=== PATIENT | male | born 1995 | race Two or more races ===

== ENCOUNTER 2022-07-13 19:08 | Inpatient (IN) | payer MEDICARE, OTHER ==
[~2022-07-13] VITALS: Ht 175.3 cm; Wt 92.1 kg
--- NOTE | 2022-07-13 19:51 | NUR ---
JIMENA FROM [facility] C/O DARK TARRY EMESIS THIS AFTERNOON. AUTISTIC PT TOLERATING R/A WELL WITH NO RESP DISTRESS. SAFETY MEASURES INPLACE.
[2022-07-13] MEDS ORDERED: IV NS 0.9% 1,000 ML BAG IV ONE (20:00)
--- NOTE | 2022-07-13 20:22 | NUR ---
RAC #18G S/L BLOOD COLLECTED AND SENT TO LAB
[2022-07-13 20:37] LABS: BASOPHILS # (AUTO) 0.1 K/uL (0.0-0.2); EOSINOPHILS % (AUTO) 1.7 % (0.0-6.0); HEMATOCRIT 46 % (39-51); HEMOGLOBIN 15.3 g/dL (13.5-17.5); LYMPHOCYTES # (AUTO) 2.5 K/uL (0.8-4.8); LYMPHOCYTES % (AUTO) 25.3 % (20.0-44.0); MEAN CORPUSCULAR HGB CONC 33 g/dl (31.0-36.0); MEAN CORPUSCULAR VOLUME 86 fL (80-96); MONOCYTES % (AUTO) 10.1 % (2.0-12.0); NEUTROPHILS # (AUTO) 6.2 K/uL (1.8-8.9); NEUTROPHILS % (AUTO) 61.9 % (43.0-81.0); PLATELET COUNT (AUTO) 266 K/uL (150-450); RED BLOOD CELL COUNT(AUTO) 5.32 MIL/uL (4.5-6.0)
[2022-07-13 21:25] LABS: ALBUMIN 4.1 g/dL (3.4-5.0); BILIRUBIN,DIRECT 0.1 mg/dL (0.0-0.2); BILIRUBIN,TOTAL 0.6 mg/dL (0.2-1.0); CALCIUM, SERUM 9.4 mg/dL (8.5-10.1); POTASSIUM 3.6 mmol/L (3.5-5.1); TOTAL PROTEIN, SERUM 7.5 g/dL (6.4-8.2)
--- NOTE | 2022-07-13 23:05 | NUR ---
PT REFUSINF TO DO CT.
--- NOTE | 2022-07-14 00:50 | NUR ---
COVID SWAB COLLECTED AND SENT TO LAB
[2022-07-14] MEDS ORDERED: PANTOPRAZOLE 40 MG VIAL IV ONE (01:00)
--- NOTE | 2022-07-14 01:16 | NUR ---
ATTEMPTED TO CALL YOUNG MOTHER FOR UPDATE; YOUNG DID NOT COAT IRONER HAND PHONE CALL. WILL TRY AGAIN LATER
[2022-07-14] MEDS ORDERED: PANTOPRAZOLE 40 MG VIAL ONE (03:26)
--- NOTE | 2022-07-14 03:42 | NUR ---
20GA TO LH ESTABLISHED
--- NOTE | 2022-07-14 03:53 | NUR ---
PT TRANSFERRED TO 3W VIA ACLS PROTOCOL. VSS. ALL BELONGINGS WITH PT.
[2022-07-14] MEDS ORDERED: MAGNESIUM HYDROXIDE 30 ML UDC PO PRN (04:00)
[2022-07-14] MEDS ORDERED: ZOLPIDEM TARTRATE 5 MG TABLET PO PRN (04:00)
[2022-07-14] MEDS ORDERED: ACETAMINOPHEN 325 MG TABLET PO PRN (04:00)
[2022-07-14] MEDS ORDERED: LORAZEPAM INJ 2 MG/ML VIAL IV PRN (04:00)
[2022-07-14] MEDS ORDERED: ONDANSETRON HCL/PF 4 MG/2 ML VIAL IVP PRN (04:00)
[2022-07-14] MEDS ORDERED: Z GUARD REMEDY 4 OZ OINT TP PRN (04:00)
[2022-07-14] MEDS ORDERED: MAG HYDROX/AL HYDROX/SIMETH 30 ML UDC PO PRN (04:00)
--- NOTE | 2022-07-14 04:00 | NUR ---
CARRIAGE FEEDER NOTES RECEIVED PATIENT AWAKE , ALERT AND ORIENTED FROM ER WITH SAMREEN. PATIENT IS NON VERBAL AND NOT HAVING EYE CONTACT.PATIENT ABLE TO AMBULATE FORM JENNRNEY TO THE BED. TRYING TO HOLD HIS HAND PATIENT REFUSING. NO PAIN NOTED. NO SOB NOTED. NO DISTRESS NOTED. ON ROOM AIR AND TOLERATING WELL. NO DISCOMFORT NOTED. NO EPISODE OF EMESIS NOTED. VITAL SIGNS IN NORMAL RANGES: NO=505/85, P=108, T=98.1, 02=97% RA. OVERALL SKIN INTACT. QUICK SKIN CHECKS DONE. PATIENT HAS HISTORY OF AUTISM AND REFUSING TO BE TOUCHED. REMOVED ID BAND. IV SITE WAS REMOVED IN ER. PATIENT REFUSED FOR IV REINSERTION. ON TELE MONITOR READING SR 86. ALL THE BELONGINGS ACCOUNTED AND SIGNED FOR. ALL SAFETY MEASURES IN PLACE. BED LOCKED IN THE LOWEST POSITION. CALL LIGHT AND TABLE IN EASY REACH SIDE RAILS UP TIMES 2. BED ALARM ON. WILL CONTINUE TO MONITOR CLOSELY.
--- NOTE | 2022-07-14 06:51 | NUR ---
CENA NOTES PATIENT SLEEPS IN BED.PATIENT IS NON VERBAL AND NOT HAVING EYE CONTACT.PATIENT ABLE TO AMBULATE .NO PAIN NOTED. NO SOB NOTED. NO DISTRESS NOTED. ON ROOM AIR AND TOLERATING WELL. NO N/V NOTED.NO DISCOMFORT NOTED. NO EPISODE OF EMESIS NOTED. VITAL SIGNS IN NORMAL RANGES: OVERALL SKIN INTACT. PATIENT HAS HISTORY OF AUTISM AND REFUSING TO BE TOUCHED. REMOVED ID BAND. IV SITE WAS REMOVED IN ER. PATIENT REFUSED FOR IV REINSERTION. PATIENT REFUSED TELE MONITOR. ALL SAFETY MEASURES IN PLACE. BED LOCKED IN THE LOWEST POSITION. CALL LIGHT AND TABLE IN EASY REACH SIDE RAILS UP TIMES 2. BED ALARM ON. MOM CALLED AT 0657 AND GOT UPDATES ON THE PATIENT.WILL ENDORSE FOR LEÓN.
--- NOTE | 2022-07-14 07:20 | NUR ---
CLERK ENTRY LEVEL OPENING NOTES RECEIVED PATIENT SLEEPING IN BED, AROUSABLE. PATIENT IS NON VERBAL AND UNABLE TO ENGAGE EYE CONTACT. NO PAIN, NO SOB NOTED, NO DISTRESS NOTED. ON ROOM AIR AND TOLERATING WELL. NO N/V NOTED. NO DISCOMFORT NOTED. NO EPISODE OF EMESIS NOTED AT THIS TIME. VITAL SIGNS IN NORMAL RANGES PER HARD TILE SETTER APPRENTICE, OVERALL SKIN INTACT. PATIENT HAS HISTORY OF AUTISM, REFUSING TO BE TOUCHED. REMOVED ID BAND. IV SITE WAS REMOVED IN ER. PATIENT WAS OFFERED IV REINSERTION, HOWEVER REFUSED. PATIENT REFUSED TELE MONITOR PER ENDORSED BY HARD TILE SETTER APPRENTICE NURSE. ALL SAFETY MEASURES IN PLACE. BED LOCKED IN THE LOWEST POSITION. CALL LIGHT AND TABLE IN EASY REACH SIDE RAILS UP TIMES 2. BED ALARM ON. PER HARD TILE SETTER APPRENTICE NURSE, MOM CALLED AT 0657 TODAY AND WAS GIVEN LATEST UPDATES. WILL CONTINUE TO MONITOR THE PATIENT FOR LEÓN.
[2022-07-14 07:30] VITALS: BP 101/66
[2022-07-14] MEDS: PANTOPRAZOLE 40 MG VIAL IV SCH ×2 (09:00→21:00)
[2022-07-14 09:33] LABS: HEMOGLOBIN 13.9 g/dL (13.5-17.5)
[2022-07-14] MEDS ORDERED: LAMO100T17 PO (11:26)
[2022-07-14] MEDS ORDERED: BISA10SU11 RC (11:26)
[2022-07-14] MEDS ORDERED: PROP40TA7 PO (11:26)
[2022-07-14] MEDS ORDERED: HALO5TAB8 PO (11:26)
[2022-07-14] MEDS ORDERED: NA P133E RC (11:26)
[2022-07-14] MEDS ORDERED: LACT-239 PO (11:26)
[2022-07-14] MEDS ORDERED: ACET-868 PO (11:26)
[2022-07-14] MEDS ORDERED: LORA-259 PO (11:26)
[2022-07-14] MEDS ORDERED: MAGN400O6 PO (11:26)
[2022-07-14] MEDS ORDERED: CLON0.5T4 PO (11:26)
[2022-07-14] MEDS ORDERED: OLAN15TA3 PO (11:26)
[2022-07-14] MEDS ORDERED: BENZ1TAB7 PO (11:26)
[2022-07-14] MEDS ORDERED: DOCU-141 PO (11:26)
[2022-07-14] MEDS ORDERED: ALLA266C2 TP (11:26)
[2022-07-14] MEDS ORDERED: OLAN10TA3 PO (11:26)
[2022-07-14] MEDS ORDERED: ONDA-97 PO (11:26)
[2022-07-14 11:30] VITALS: BP 119/63
[2022-07-14 12:22] LABS: HEMOGLOBIN 14.1 g/dL (13.5-17.5)
[2022-07-14] MEDS ORDERED: KETAMINE HCL(200MG/20ML) 10 MG/ML VIAL IV ONE (13:30)
[2022-07-14] MEDS ORDERED: IOHEXOL-300 100 ML VIAL IV ONE (14:23)
[2022-07-14] MEDS ORDERED: IV NS 0.9% 250 ML IV ONE (14:23)
[2022-07-14] MEDS ORDERED: CT SWABBABLE VALVE TRANS SET 1 EA INFUS.SET MC ONE (14:23)
[2022-07-14] MEDS ORDERED: KETAMINE HCL ONE (14:26)
[2022-07-14] MEDS ORDERED: NACL 0.9% ONE (14:26)
[2022-07-14 15:30] VITALS: BP 124/77
[2022-07-14] MEDS ORDERED: BISACODYL SUPP (10 MG) 10 MG/SUPP.RECT SUPP.RECT RC PRN (15:30)
[2022-07-14] MEDS: HALOPERIDOL 5 MG TABLET PO SCH (16:16)
[2022-07-14] MEDS: clonazePAM 0.5 MG TABLET PO SCH (16:16)
[2022-07-14] MEDS: BENZTROPINE MESYLATE (1 MG) 1 MG TABLET PO SCH (16:16)
[2022-07-14] MEDS: DOCUSATE SODIUM 100 MG CAPSULE PO SCH (16:16)
--- NOTE | 2022-07-14 16:24 | NUR ---
Patient refused reattachment of tele-monitor device x2--prior and post CT of abdomen/pelvis. Charge nurse aware.
[2022-07-14] MEDS: ENSURE CLEAR 237 ML LIQUID (MIX BERRY) PO SCH (17:00)
--- NOTE | 2022-07-14 18:43 | NUR ---
SANDBLASTING SUPERVISOR NOTES PATIENT AWAKE IN BED, NON VERBAL AND NOT HAVING EYE CONTACT. PATIENT ABLE TO AMBULATE. NO PAIN, SOB, NOR DISTRESS NOTED. ON ROOM AIR AND TOLERATING WELL. NO N/V NOTED. NO DISCOMFORT NOTED. NO EPISODE OF EMESIS NOTED. VITAL SIGNS IN NORMAL RANGES. OVERALL SKIN INTACT. PATIENT HAS HISTORY OF AUTISM AND SCHIZOPHRENIA. PATIENT WAS COOPERATIVE DURING THE CT SCAN OF ABDOMEN & PELVIS. IV LINE WAS ABLE TO ESTABLISHED AT RIGHT FOREARM #20G SL HOWEVER, PATIENT STILL REFUSED REATTACHMENT OF TELE MONITOR. ALL SAFETY MEASURES IN PLACE. BED LOCKED IN THE LOWEST POSITION. CALL LIGHT AND TABLE IN EASY REACH SIDE RAILS UP TIMES 2. BED ALARM ON. WILL BE ENDORSED TO PM NURSE FOR LEÓN.
--- NOTE | 2022-07-14 19:35 | NUR ---
HAND SHOES SEWER OPENING NOTE RECEIVED PATIENT IN BED; AWAKE, ALERT AND ORIENTED X 1; NONVERBAL. ON ROOM AIR; TOLERATING WELL. AFEBRILE. NOT IN ANY FORM OF RESPIRATORY OR CARDIAC DISTRESS. NO S/S OF PAIN OR DISCOMFORT NOTED AT THIS TIME. WITH IV ACCESS ON RIGHT FA 20g; PATENT, INTACT AND SALINE LOCKED. NEEDS ANTICIPATED. SAFETY PRECAUTIONS IMPLEMENTED: CALL LIGHT AND TABLE WITHIN REACH, SIDE RAILS UP X 2, BED IN LOWEST KAT POSITION. WILL CONTINUE TO MONITOR THROUGHOUT SHIFT.
[2022-07-14 20:00] VITALS: BP 116/71
[2022-07-14 20:21] VITALS: BP 116/71
[2022-07-14] MEDS ORDERED: OLANZAPINE 5 MG TABLET PO SCH (22:00)
[2022-07-15] VITALS: BP 118/80
[2022-07-15 00:47] VITALS: BP 118/80
[2022-07-15 05:10] VITALS: BP 111/60
--- NOTE | 2022-07-15 06:30 | NUR ---
RN NOTE PATIENT PICKED UP VIA HIS BED TO SURGERY FOR EGD BY OR TRANSPORTERS.
--- NOTE | 2022-07-15 06:55 | NUR ---
RN CLOSING NOTE PATIENT STILL AT OR. ENDORSEMENT REPORT SHEET GIVEN TO INCOMING NURSE FELIZ RUEDA FOR LEÓN.
[2022-07-15] MEDS: clonazePAM 0.5 MG TABLET PO SCH (07:00)
--- NOTE | 2022-07-15 07:50 | NUR ---
0745- BILLET STRAIGHTENER OPENING NOTES: PT CAME BACK TO UNIT FROM OR, S/P EGD. AWAKE, NON VERBAL. NO S/S OF SOB ON RA, VITALS WNL. PT HAS IV ACCESS ON R HAND #22 RUNNING NS VIA GRAVITY. NO PAIN VIA FLACC OBSERVED. TELE MONITOR OFF, PT KEPT TAKING OFF DURING PM SHIFT PER PM RN. ALL SAFETY MEASURES IN PLACE, REG DIET RESUMED, REORIENTED TO STAFF AND UNIT, CALL LIGHT AND TABLE WITHIN EASY REACH; WILL CONT WITH PLAN OF CARE DURING SHIFT.
[2022-07-15 08:00] VITALS: BP 113/67
--- NOTE | 2022-07-15 08:50 | NUR ---
RN NOTES: PT REMOVED IV ACCESS, MD AWARE LABS DRAWN BY LAB STAFF.
[2022-07-15] MEDS ORDERED: LamoTRIgine 100 MG TABLET PO SCH (09:00)
[2022-07-15] MEDS: PANTOPRAZOLE 40 MG VIAL IV SCH (09:00)
[2022-07-15] MEDS ORDERED: OLANZAPINE 10 MG TABLET PO SCH (09:00)
[2022-07-15] MEDS ORDERED: PROPRANOLOL HCL 40 MG TABLET PO SCH (09:00)
[2022-07-15] MEDS: HALOPERIDOL 5 MG TABLET PO SCH (09:38)
[2022-07-15] MEDS: DOCUSATE SODIUM 100 MG CAPSULE PO SCH (09:38)
[2022-07-15] MEDS: BENZTROPINE MESYLATE (1 MG) 1 MG TABLET PO SCH (09:38)
[2022-07-15] MEDS: ENSURE CLEAR 237 ML LIQUID (MIX BERRY) PO SCH (09:39)
[2022-07-15 09:43] LABS: BASOPHILS % (AUTO) 0.3 % (0.0-2.0); EOSINOPHILS % (AUTO) 0.5 % (0.0-6.0); HEMATOCRIT 42 % (39-51); HEMOGLOBIN 13.9 g/dL (13.5-17.5); LYMPHOCYTES # (AUTO) 1.7 K/uL (0.8-4.8); LYMPHOCYTES % (AUTO) 16.8 % (20.0-44.0); MEAN CORPUSCULAR HGB CONC 33 g/dl (31.0-36.0); MEAN CORPUSCULAR VOLUME 89 fL (80-96); MONOCYTES # (AUTO) 1.1 K/uL (0.1-1.30); MONOCYTES % (AUTO) 10.4 % (2.0-12.0); NEUTROPHILS # (AUTO) 7.5 K/uL (1.8-8.9); PLATELET COUNT (AUTO) 254 K/uL (150-450); RED BLOOD CELL COUNT(AUTO) 4.75 MIL/uL (4.5-6.0); WHITE BLOOD COUNT (AUTO) 10.4 K/uL (4.3-11.0)
[2022-07-15 09:53] LABS: CALCIUM, SERUM 8.7 mg/dL (8.5-10.1); CREATININE 0.8 mg/dL (0.6-1.3); MAGNESIUM 2.1 mg/dL (1.8-2.4); PHOSPHORUS 3.1 mg/dL (2.5-4.9); POTASSIUM 3.4 mmol/L (3.5-5.1)
[2022-07-15] MEDS ORDERED: PANTOPRAZOLE 40 MG TABLET.DR PO SCH (09:54)
[2022-07-15 11:24] VITALS: BP 139/72
[2022-07-15] MEDS ORDERED: SUCRALFATE 1 G/10 ML UDC GT SCH (12:00)
--- NOTE | 2022-07-15 14:32 | NUR ---
RN DC NOTES: REPORT GIVEN TO FELIZ ROSALES FROM [facility] BY PHONE. PT IS MEDICALLY STABLE FOR DC. VITALS WNL, NO S/S OF SOB ON RA. ID BAND REMOVED, PT HAS NO IV ACCESS. BELONGINGS ALL ACCOUNTED FOR. 2 RNS SIGNED FOR BELONGINGS CHECKLIST AND DC INSTRUCTIONS. MEDICAL RECORDS AND MED RECON PRINTED, GIVEN TO CONSUMER LOAN OFFICER. PT LEFT UNIT VIA [id number], [address] IS TRANSPORTATION.
== END 2022-07-15 14:30 | DRG 392 ==
LOC: ER 19:10 → TELE 07-14 02:02
PROVIDERS: ADMIT Nurse Practitioner Family; ATTEND Nurse Practitioner Family
PROC: 0DB58ZX Excision of Esophagus, Via Natural or Artificial Opening Endoscopic, Diagnostic (ICD-10-PCS; principal; 2022-07-15)
DX: K20.90 Esophagitis, unspecified without bleeding (principal); F84.0 Autistic disorder; K29.70 Gastritis, unspecified, without bleeding; Q99.2 Fragile X chromosome; G40.909 Epilepsy, unspecified, not intractable, without status epilepticus; R79.89 Other specified abnormal findings of blood chemistry; Z20.822 Contact with and (suspected) exposure to COVID-19; F20.9 Schizophrenia, unspecified
CPT/HCPCS: 36415; 80048-TC; 80076-TC; 83605-TC; 83690-TC; 83735-TC; 84100-TC; 85025-TC; 85027-TC; 85730-TC; 87081-TC; C9113; C9803; G0378; J2704; J7030; J7050; Q9967

== ENCOUNTER 2023-01-01 20:25 | Inpatient (IN) | payer MEDICARE, OTHER ==
[~2023-01-01] VITALS: Ht 177.8 cm; Wt 81.6 kg
[~2023-01-01 20:25] MED LIST: ACET-868 PO; ALLA266C2 TP; BENZ1TAB7 PO; BISA10SU11 RC; CLON0.5T4 PO; DOCU-141 PO; HALO5TAB8 PO; LACT-239 PO; LAMO100T17 PO; LORA-259 PO; MAGN400O6 PO; NA P133E RC; OLAN10TA3 PO; OLAN15TA3 PO; ONDA-97 PO; PROP40TA7 PO
[2023-01-01] MEDS ORDERED: VANCOMYCIN 1 GM /D5W 250 ML PB IV ONE (20:52)
[2023-01-01] MEDS ORDERED: ACETAMINOPHEN 650 MG/SUPP.RECT RC ONE ×2 (20:52→21:00)
[2023-01-01] MEDS ORDERED: IV NS 0.9% 1,000 ML BAG IV ONE (21:00)
[2023-01-01] MEDS ORDERED: VANCOMYCIN 1 GM in IV D5W 250 ML IV ONE (21:00)
[2023-01-01 21:09] LABS: BASOPHILS # (AUTO) 0.1 K/uL (0.0-0.2); BASOPHILS % (AUTO) 0.4 % (0.0-2.0); HEMATOCRIT 39 % (39-51); HEMOGLOBIN 12.9 g/dL (13.5-17.5); LYMPHOCYTES # (AUTO) 1.1 K/uL (0.8-4.8); LYMPHOCYTES % (AUTO) 8.1 % (20.0-44.0); MEAN CORPUSCULAR HEMOGLOBIN 28 PG (26.0-33.0); MEAN CORPUSCULAR HGB CONC 33 g/dl (31.0-36.0); MEAN CORPUSCULAR VOLUME 85 fL (80-96); MONOCYTES # (AUTO) 2.4 K/uL (0.1-1.30); NEUTROPHILS # (AUTO) 10.5 K/uL (1.8-8.9); NEUTROPHILS % (AUTO) 74.5 % (43.0-81.0); PLATELET COUNT (AUTO) 130 K/uL (150-450); RED BLOOD CELL COUNT(AUTO) 4.57 MIL/uL (4.5-6.0); RED CELL DISTRIBUTION WIDTH 16.8 % (11.5-15.0)
[2023-01-01 21:17] LABS: CALCIUM, SERUM 8.5 mg/dL (8.5-10.1); CARBON DIOXIDE 25 mmol/L (21-32); CHLORIDE 104 mmol/L (98-107); CREATININE 0.8 mg/dL (0.6-1.3); GLUCOSE 108 mg/dL (74-106); POTASSIUM 3.6 mmol/L (3.5-5.1); SODIUM SERUM 137 mmol/L (136-145); UREA NITROGEN, BLOOD 17 mg/dL (7-18)
[2023-01-01 21:22] LABS: ALANINE AMINOTRANSFERASE 11 U/L (12-78); ALBUMIN 2.6 g/dL (3.4-5.0); ALKALINE PHOSPHATASE 65 U/L (46-116); ASPARTATE AMINOTRANSFERASE 7 U/L (15-37); BILIRUBIN,DIRECT 0.2 mg/dL (0.0-0.2); BILIRUBIN,TOTAL 0.4 mg/dL (0.2-1.0)
[2023-01-01 21:25] LABS: LACTIC ACID 1.4 mmol/L (0.4-2.0)
[2023-01-01 21:34] LABS: APPEARANCE,URINE CLEAR (CLEAR); BILIRUBIN,URINE 1+ (NEGATIVE); BLOOD, URINE NEGATIVE Ery/uL (NEGATIVE); COLOR,URINE YELLOW (YELLOW); KETONES,URINE 1+ mg/dL (NEGATIVE); LEUKOCYTE ESTERASE ,URINE NEGATIVE (NEGATIVE); NITRITE, URINE NEGATIVE (NEGATIVE); PROTEIN,URINE 2+ mg/dl (NEGATIVE); UGLUCOSE NEGATIVE (NEGATIVE)
[2023-01-01 21:44] LABS: INR 1.07 (0.91-1.10); PROTHROMBIN TIME 11.3 SECS (9.2-11.1)
[2023-01-01 21:57] LABS: ADD URINE CULTURE NO; BACTERIA,URINE None seen /HPF (None Seen); RBC,URINE 0-2 /HPF (0-2); WBC,URINE 0-2 /HPF (0-3)
[2023-01-01 21:58] LABS: MUCUS,URINE Few /LPF (None Seen)
[2023-01-01 22:02] LABS: BAND % (MANUAL) 2 % (0.0-5.0); LYMPHOCYTES % (MANUAL) 9 % (16-48); MONOCYTES % (MANUAL) 12 % (0-11.0); NEUTROPHILS % (MANUAL) 77 (42-76); PLATELET ESTIMATE DECREASED
[2023-01-01 22:03] LABS: ANISOCYTOSIS 1+
[2023-01-01] MEDS ORDERED: ACETAMINOPHEN 325 MG TABLET PO PRN (23:00)
[2023-01-01] MEDS ORDERED: BISACODYL SUPP (10 MG) 10 MG/SUPP.RECT SUPP.RECT RC PRN (23:00)
[2023-01-01] MEDS ORDERED: LORAZEPAM 1 MG TABLET PO PRN (23:00)
[2023-01-01] MEDS ORDERED: HYDROCODONE/APAP 10/325MG TABLET PO PRN (23:00)
[2023-01-01] MEDS ORDERED: ONDANSETRON HCL/PF 4 MG/2 ML VIAL IVP PRN (23:00)
[2023-01-01] MEDS ORDERED: Z GUARD REMEDY 4 OZ OINT TP PRN (23:00)
[2023-01-01 23:30] VITALS: BP 93/53; TEMP 98.9; O2SAT 96
[2023-01-01] MEDS: ENOXAPARIN SODIUM 40 MG/0.4 ML DISP.SYRIN SQ SCH (23:43)
[2023-01-02] MEDS: IV NS 0.9% 1,000 ML IV PRN ×2 (00:05→18:01)
[2023-01-02 05:47] LABS: BASOPHILS % (AUTO) 0.4 % (0.0-2.0); EOSINOPHILS % (AUTO) 0.1 % (0.0-6.0); HEMATOCRIT 38 % (39-51); HEMOGLOBIN 12.3 g/dL (13.5-17.5); LYMPHOCYTES # (AUTO) 1.1 K/uL (0.8-4.8); LYMPHOCYTES % (AUTO) 8.4 % (20.0-44.0); MEAN CORPUSCULAR HEMOGLOBIN 28 PG (26.0-33.0); MEAN CORPUSCULAR HGB CONC 33 g/dl (31.0-36.0); MEAN CORPUSCULAR VOLUME 86 fL (80-96); MONOCYTES # (AUTO) 2.3 K/uL (0.1-1.30); MONOCYTES % (AUTO) 17.7 % (2.0-12.0); NEUTROPHILS # (AUTO) 9.6 K/uL (1.8-8.9); NEUTROPHILS % (AUTO) 73.4 % (43.0-81.0); PLATELET COUNT (AUTO) 116 K/uL (150-450); RED BLOOD CELL COUNT(AUTO) 4.41 MIL/uL (4.5-6.0); RED CELL DISTRIBUTION WIDTH 16.5 % (11.5-15.0)
[2023-01-02 06:04] LABS: CALCIUM, SERUM 7.9 mg/dL (8.5-10.1); CREATININE 0.8 mg/dL (0.6-1.3); MAGNESIUM 1.9 mg/dL (1.8-2.4); PHOSPHORUS 2.8 mg/dL (2.5-4.9); POTASSIUM 3.4 mmol/L (3.5-5.1)
[2023-01-02 06:17] LABS: THYROID STIMULATING HORMONE 1.167 uIU/mL (0.358-3.74)
[2023-01-02 07:00] VITALS: BP 168/105; TEMP 98.2; O2SAT 98
[2023-01-02] MEDS ORDERED: DIAZ5TAB PO (07:50)
[2023-01-02] MEDS ORDERED: HYDR50TA61 PO (07:50)
[2023-01-02] MEDS ORDERED: SUCR1ORA15 PO (07:50)
[2023-01-02] MEDS ORDERED: GLYC1SOL PO (07:50)
[2023-01-02] MEDS ORDERED: DIVA500T2 PO (07:50)
[2023-01-02] MEDS ORDERED: RISP0.2515 PO (07:50)
[2023-01-02] MEDS ORDERED: POLY17PO4 PO (07:50)
[2023-01-02] MEDS ORDERED: TEMA15CA5 PO (07:50)
[2023-01-02] MEDS ORDERED: PANT20TA2 PO (07:50)
[2023-01-02] MEDS: DOCUSATE SODIUM 100 MG CAPSULE PO SCH ×2 (08:02→16:51)
[2023-01-02] MEDS: clonazePAM 0.5 MG TABLET PO SCH ×2 (08:02→16:50)
[2023-01-02] MEDS: OLANZAPINE 10 MG TABLET PO SCH (08:02)
[2023-01-02] MEDS: BENZTROPINE MESYLATE (1 MG) 1 MG TABLET PO SCH ×2 (08:02→16:50)
[2023-01-02] MEDS: LamoTRIgine 100 MG TABLET PO SCH (08:02)
[2023-01-02] MEDS: ENSURE CLEAR 237 ML LIQUID (MIX BERRY) PO SCH ×2 (08:06→16:51)
[2023-01-02] MEDS: VANCOMYCIN 1 GM in IV D5W 250 ML IV SCH ×3 (08:34→23:48)
[2023-01-02] MEDS ORDERED: PROPRANOLOL HCL 40 MG TABLET PO SCH (09:00)
[2023-01-02] MEDS ORDERED: POTASSIUM CHLORIDE 20 MEQ TAB.PRT.SR PO SCH (10:00)
[2023-01-02] MEDS ORDERED: PROPRANOLOL LA 60 MG CAP.SA.24H PO SCH (10:18)
[2023-01-02] MEDS: PROPRANOLOL HCL 40 MG TABLET PO SCH ×2 (13:00→16:50)
[2023-01-02] MEDS ORDERED: TEMAZEPAM 15 MG CAPSULE PO PRN (13:30)
[2023-01-02] MEDS ORDERED: hydrALAZINE HCL 50 MG TABLET PO PRN (14:30)
[2023-01-02] MEDS ORDERED: ONDANSETRON 4 MG TAB.RAPDIS PO PRN (14:30)
[2023-01-02] MEDS ORDERED: GLYCOPYRROLATE 1 MG TABLET PO PRN (14:30)
[2023-01-02 16:00] VITALS: BP 113/65; TEMP 98.5; O2SAT 98
[2023-01-02] MEDS: SUCRALFATE 1 G/10 ML UDC PO SCH ×2 (16:52→22:00)
[2023-01-02 20:00] VITALS: BP 110/69; TEMP 102; O2SAT 95
[2023-01-02] MEDS: ENOXAPARIN SODIUM 40 MG/0.4 ML DISP.SYRIN SQ SCH (20:54)
[2023-01-02] MEDS: risperiDONE 1 MG TABLET PO SCH (20:59)
[2023-01-02] MEDS: DIAZEPAM 5 MG TABLET PO SCH (20:59)
[2023-01-02] MEDS: DIVALPROEX SODIUM 500 MG TABLET.DR PO SCH (21:00)
[2023-01-02] MEDS: OLANZAPINE 5 MG TABLET PO SCH (22:00)
[2023-01-02] MEDS ORDERED: ACETAMINOPHEN 650 MG/SUPP.RECT RC PRN (23:00)
[2023-01-03 01:09] LABS: BAND % (MANUAL) 3 % (0.0-5.0); LYMPHOCYTES % (MANUAL) 15 % (16-48); MONOCYTES % (MANUAL) 11 % (0-11.0); NEUTROPHILS % (MANUAL) 71 (42-76); PLATELET ESTIMATE DECREASED
[2023-01-03] MEDS: DIAZEPAM 5 MG TABLET PO SCH ×3 (05:00→21:00)
[2023-01-03 06:21] LABS: BASOPHILS % (AUTO) 0.1 % (0.0-2.0); HEMATOCRIT 36 % (39-51); LYMPHOCYTES % (AUTO) 7.6 % (20.0-44.0); MEAN CORPUSCULAR HEMOGLOBIN 28 PG (26.0-33.0); MEAN CORPUSCULAR HGB CONC 33 g/dl (31.0-36.0); MEAN CORPUSCULAR VOLUME 86 fL (80-96); MONOCYTES # (AUTO) 2.1 K/uL (0.1-1.30); MONOCYTES % (AUTO) 16.1 % (2.0-12.0); NEUTROPHILS % (AUTO) 76.2 % (43.0-81.0); PLATELET COUNT (AUTO) 132 K/uL (150-450); RED BLOOD CELL COUNT(AUTO) 4.25 MIL/uL (4.5-6.0); RED CELL DISTRIBUTION WIDTH 17.1 % (11.5-15.0); WHITE BLOOD COUNT (AUTO) 13.2 K/uL (4.3-11.0)
[2023-01-03 06:42] LABS: CALCIUM, SERUM 8.2 mg/dL (8.5-10.1); CREATININE 0.7 mg/dL (0.6-1.3); MAGNESIUM 2.3 mg/dL (1.8-2.4); PHOSPHORUS 3.2 mg/dL (2.5-4.9); POTASSIUM 3.2 mmol/L (3.5-5.1)
[2023-01-03] MEDS: clonazePAM 0.5 MG TABLET PO SCH ×2 (07:24→17:46)
[2023-01-03] MEDS: PANTOPRAZOLE 40 MG TABLET.DR PO SCH (07:55)
[2023-01-03] MEDS: SUCRALFATE 1 G/10 ML UDC PO SCH (07:55)
[2023-01-03 08:00] VITALS: BP 116/76; TEMP 97.6; O2SAT 96
[2023-01-03] MEDS: OLANZAPINE 10 MG TABLET PO SCH (08:35)
[2023-01-03] MEDS: BENZTROPINE MESYLATE (1 MG) 1 MG TABLET PO SCH ×2 (08:35→17:46)
[2023-01-03] MEDS: DOCUSATE SODIUM 100 MG CAPSULE PO SCH ×2 (08:35→17:46)
[2023-01-03] MEDS: LamoTRIgine 100 MG TABLET PO SCH (08:35)
[2023-01-03] MEDS: risperiDONE 1 MG TABLET PO SCH ×2 (08:35→21:01)
[2023-01-03] MEDS: DIVALPROEX SODIUM 500 MG TABLET.DR PO SCH ×2 (08:35→21:01)
[2023-01-03] MEDS: IV NS 0.9% 1,000 ML IV PRN (08:41)
[2023-01-03] MEDS: VANCOMYCIN 1 GM in IV D5W 250 ML IV SCH ×3 (08:41→23:46)
[2023-01-03] MEDS: POLYETHYLENE GLYCOL 3350 17 GM POWD.PACK PO SCH (09:00)
[2023-01-03] MEDS: PROPRANOLOL HCL 40 MG TABLET PO SCH ×3 (09:00→17:46)
[2023-01-03] MEDS: ENSURE CLEAR 237 ML LIQUID (MIX BERRY) PO SCH ×2 (09:04→17:00)
[2023-01-03] MEDS: POTASSIUM CHLORIDE 20 MEQ POWDER PACKET PO SCH ×2 (10:39→11:03)
[2023-01-03] MEDS: SUCRALFATE 1 G TABLET PO SCH ×3 (11:02→21:01)
[2023-01-03 16:00] VITALS: BP 110/71; TEMP 99.5; O2SAT 95
[2023-01-03 17:22] LABS: ERYTHROCYTE SEDIMENTATION RATE 72 MM/HR (0-15)
[2023-01-03 19:00] VITALS: BP 97/64; TEMP 99; O2SAT 98
[2023-01-03] MEDS: ENOXAPARIN SODIUM 40 MG/0.4 ML DISP.SYRIN SQ SCH (21:03)
[2023-01-03] MEDS: OLANZAPINE 5 MG TABLET PO SCH (21:49)
[2023-01-03] MEDS: IV LR 1000 ML 1,000 ML IV PRN (23:03)
[2023-01-04] MEDS: DIAZEPAM 5 MG TABLET PO SCH ×3 (04:57→21:00)
[2023-01-04] MEDS: clonazePAM 0.5 MG TABLET PO SCH ×2 (06:30→16:23)
[2023-01-04 07:09] LABS: BASOPHILS % (AUTO) 0.1 % (0.0-2.0); EOSINOPHILS # (AUTO) 0.1 K/uL (0.0-0.7); EOSINOPHILS % (AUTO) 1.3 % (0.0-6.0); HEMATOCRIT 33 % (39-51); LYMPHOCYTES # (AUTO) 1.3 K/uL (0.8-4.8); LYMPHOCYTES % (AUTO) 12.3 % (20.0-44.0); MEAN CORPUSCULAR HEMOGLOBIN 29 PG (26.0-33.0); MEAN CORPUSCULAR HGB CONC 33 g/dl (31.0-36.0); MEAN CORPUSCULAR VOLUME 86 fL (80-96); MONOCYTES # (AUTO) 1.4 K/uL (0.1-1.30); MONOCYTES % (AUTO) 13.6 % (2.0-12.0); NEUTROPHILS # (AUTO) 7.6 K/uL (1.8-8.9); NEUTROPHILS % (AUTO) 72.7 % (43.0-81.0); PLATELET COUNT (AUTO) 167 K/uL (150-450); RED BLOOD CELL COUNT(AUTO) 3.82 MIL/uL (4.5-6.0); RED CELL DISTRIBUTION WIDTH 16.6 % (11.5-15.0); WHITE BLOOD COUNT (AUTO) 10.4 K/uL (4.3-11.0)
[2023-01-04] MEDS: SUCRALFATE 1 G TABLET PO SCH ×4 (07:30→22:00)
[2023-01-04] MEDS: PANTOPRAZOLE 40 MG TABLET.DR PO SCH (07:30)
[2023-01-04 07:36] LABS: CALCIUM, SERUM 8.8 mg/dL (8.5-10.1); CREATININE 0.7 mg/dL (0.6-1.3); MAGNESIUM 2.4 mg/dL (1.8-2.4); PHOSPHORUS 3.3 mg/dL (2.5-4.9); POTASSIUM 3.4 mmol/L (3.5-5.1)
[2023-01-04 08:00] VITALS: BP 113/72; TEMP 99; O2SAT 98
[2023-01-04] MEDS: ENSURE CLEAR 237 ML LIQUID (MIX BERRY) PO SCH ×2 (08:00→16:23)
[2023-01-04] MEDS: BENZTROPINE MESYLATE (1 MG) 1 MG TABLET PO SCH ×2 (08:36→16:22)
[2023-01-04] MEDS: PROPRANOLOL LA 60 MG CAP.SA.24H PO SCH (08:37)
[2023-01-04] MEDS: DOCUSATE SODIUM 100 MG CAPSULE PO SCH ×2 (08:37→16:22)
[2023-01-04] MEDS: LamoTRIgine 100 MG TABLET PO SCH (08:39)
[2023-01-04] MEDS: POLYETHYLENE GLYCOL 3350 17 GM POWD.PACK PO SCH (08:39)
[2023-01-04] MEDS: DIVALPROEX SODIUM 500 MG TABLET.DR PO SCH (08:39)
[2023-01-04] MEDS: risperiDONE 1 MG TABLET PO SCH ×2 (08:40→21:00)
[2023-01-04] MEDS: OLANZAPINE 10 MG TABLET PO SCH (08:40)
[2023-01-04] MEDS: VANCOMYCIN 1 GM in IV D5W 250 ML IV SCH ×3 (08:54→23:25)
[2023-01-04] MEDS: VALPROATE 500 MG in IV D5W 100 ML IV SCH ×2 (10:05→21:30)
[2023-01-04] MEDS ORDERED: IV NS 0.9% 250 ML IV ONE (10:10)
[2023-01-04] MEDS ORDERED: IOHEXOL-350 100 ML VIAL IV ONE (10:10)
[2023-01-04] MEDS: POTASSIUM CL. PREMIX PERIPHER. 50 ML IV SCH ×2 (10:56→11:53)
[2023-01-04 14:00] VITALS: BP 137/79; TEMP 98.4; O2SAT 98
[2023-01-04] MEDS: IV LR 1000 ML 1,000 ML IV PRN (18:39)
[2023-01-04 20:00] VITALS: BP 118/72; TEMP 98.4; O2SAT 97
[2023-01-04] MEDS: CEFEPIME 1 GM in IV D5W 50 ML IV SCH (20:25)
[2023-01-04] MEDS: ENOXAPARIN SODIUM 40 MG/0.4 ML DISP.SYRIN SQ SCH (21:29)
[2023-01-04] MEDS: OLANZAPINE 5 MG TABLET PO SCH (22:00)
[2023-01-05] MEDS: DIAZEPAM 5 MG TABLET PO SCH ×3 (05:00→21:00)
[2023-01-05] MEDS: CEFEPIME 1 GM in IV D5W 50 ML IV SCH ×3 (05:11→21:41)
[2023-01-05] MEDS: clonazePAM 0.5 MG TABLET PO SCH ×2 (07:00→16:42)
[2023-01-05] MEDS: SUCRALFATE 1 G TABLET PO SCH ×4 (07:30→21:43)
[2023-01-05] MEDS: PANTOPRAZOLE 40 MG TABLET.DR PO SCH (07:30)
[2023-01-05 07:51] LABS: CALCIUM, SERUM 8.3 mg/dL (8.5-10.1); CREATININE 0.7 mg/dL (0.6-1.3); MAGNESIUM 2.3 mg/dL (1.8-2.4); PHOSPHORUS 3.3 mg/dL (2.5-4.9); POTASSIUM 3.1 mmol/L (3.5-5.1)
[2023-01-05] MEDS: ENSURE CLEAR 237 ML LIQUID (MIX BERRY) PO SCH ×2 (08:00→16:42)
[2023-01-05 08:08] LABS: BASOPHILS % (AUTO) 0.2 % (0.0-2.0); EOSINOPHILS # (AUTO) 0.2 K/uL (0.0-0.7); EOSINOPHILS % (AUTO) 1.9 % (0.0-6.0); HEMATOCRIT 30 % (39-51); HEMOGLOBIN 9.9 g/dL (13.5-17.5); LYMPHOCYTES # (AUTO) 0.9 K/uL (0.8-4.8); LYMPHOCYTES % (AUTO) 10.7 % (20.0-44.0); MEAN CORPUSCULAR HEMOGLOBIN 28 PG (26.0-33.0); MEAN CORPUSCULAR HGB CONC 33 g/dl (31.0-36.0); MEAN CORPUSCULAR VOLUME 85 fL (80-96); MONOCYTES # (AUTO) 0.9 K/uL (0.1-1.30); NEUTROPHILS # (AUTO) 6.4 K/uL (1.8-8.9); NEUTROPHILS % (AUTO) 76.2 % (43.0-81.0); PLATELET COUNT (AUTO) 174 K/uL (150-450); RED BLOOD CELL COUNT(AUTO) 3.49 MIL/uL (4.5-6.0); RED CELL DISTRIBUTION WIDTH 16.4 % (11.5-15.0); WHITE BLOOD COUNT (AUTO) 8.4 K/uL (4.3-11.0)
[2023-01-05] MEDS: PROPRANOLOL LA 60 MG CAP.SA.24H PO SCH (09:00)
[2023-01-05] MEDS: LamoTRIgine 100 MG TABLET PO SCH (09:00)
[2023-01-05] MEDS: BENZTROPINE MESYLATE (1 MG) 1 MG TABLET PO SCH ×2 (09:00→16:42)
[2023-01-05] MEDS: POLYETHYLENE GLYCOL 3350 17 GM POWD.PACK PO SCH (09:00)
[2023-01-05] MEDS: DOCUSATE SODIUM 100 MG CAPSULE PO SCH ×2 (09:00→16:42)
[2023-01-05] MEDS: risperiDONE 1 MG TABLET PO SCH ×2 (09:00→21:00)
[2023-01-05] MEDS: OLANZAPINE 10 MG TABLET PO SCH (09:00)
[2023-01-05] MEDS: VANCOMYCIN 1 GM in IV D5W 250 ML IV SCH (10:02)
[2023-01-05] MEDS: VALPROATE 500 MG in IV D5W 100 ML IV SCH ×2 (10:02→21:41)
[2023-01-05] MEDS: POTASSIUM CL. PREMIX PERIPHER. 50 ML IV SCH ×4 (10:56→13:43)
[2023-01-05 16:00] VITALS: BP 99/62; TEMP 100.6; O2SAT 94
[2023-01-05] MEDS: VANCOMYCIN 0.75 GM in IV D5W 250 ML IV SCH (18:31)
[2023-01-05 20:00] VITALS: BP 116/72; TEMP 98.4; O2SAT 95
[2023-01-05] MEDS: ENOXAPARIN SODIUM 40 MG/0.4 ML DISP.SYRIN SQ SCH (21:43)
[2023-01-05] MEDS: OLANZAPINE 5 MG TABLET PO SCH (21:43)
[2023-01-06] MEDS: VANCOMYCIN 0.75 GM in IV D5W 250 ML IV SCH ×3 (02:57→18:08)
[2023-01-06] MEDS: IV LR 1000 ML 1,000 ML IV PRN ×2 (03:06→18:33)
[2023-01-06] MEDS: DIAZEPAM 5 MG TABLET PO SCH ×3 (05:00→20:50)
[2023-01-06 05:14] LABS: BASOPHILS % (AUTO) 0.2 % (0.0-2.0); EOSINOPHILS # (AUTO) 0.1 K/uL (0.0-0.7); EOSINOPHILS % (AUTO) 0.9 % (0.0-6.0); HEMATOCRIT 33 % (39-51); LYMPHOCYTES # (AUTO) 0.9 K/uL (0.8-4.8); LYMPHOCYTES % (AUTO) 10.5 % (20.0-44.0); MEAN CORPUSCULAR HEMOGLOBIN 29 PG (26.0-33.0); MEAN CORPUSCULAR HGB CONC 34 g/dl (31.0-36.0); MEAN CORPUSCULAR VOLUME 85 fL (80-96); MONOCYTES # (AUTO) 1.1 K/uL (0.1-1.30); MONOCYTES % (AUTO) 13.4 % (2.0-12.0); NEUTROPHILS # (AUTO) 6.4 K/uL (1.8-8.9); PLATELET COUNT (AUTO) 222 K/uL (150-450); RED BLOOD CELL COUNT(AUTO) 3.85 MIL/uL (4.5-6.0); RED CELL DISTRIBUTION WIDTH 16.7 % (11.5-15.0); WHITE BLOOD COUNT (AUTO) 8.5 K/uL (4.3-11.0)
[2023-01-06 05:27] LABS: BILIRUBIN,TOTAL 0.3 mg/dL (0.2-1.0); CALCIUM, SERUM 8.6 mg/dL (8.5-10.1); CREATININE 0.7 mg/dL (0.6-1.3); POTASSIUM 3.2 mmol/L (3.5-5.1); TOTAL PROTEIN, SERUM 6.3 g/dL (6.4-8.2)
[2023-01-06 06:09] LABS: CALCIUM, SERUM 8.7 mg/dL (8.5-10.1); CREATININE 0.6 mg/dL (0.6-1.3); POTASSIUM 3.1 mmol/L (3.5-5.1)
[2023-01-06] MEDS: CEFEPIME 1 GM in IV D5W 50 ML IV SCH ×3 (06:29→21:13)
[2023-01-06] MEDS: clonazePAM 0.5 MG TABLET PO SCH ×2 (06:29→17:00)
[2023-01-06] MEDS: PANTOPRAZOLE 40 MG TABLET.DR PO SCH (07:30)
[2023-01-06] MEDS: SUCRALFATE 1 G TABLET PO SCH ×4 (07:30→21:13)
[2023-01-06 08:00] VITALS: BP 104/51; TEMP 100.1; O2SAT 93
[2023-01-06] MEDS: ENSURE CLEAR 237 ML LIQUID (MIX BERRY) PO SCH ×2 (08:00→17:00)
[2023-01-06] MEDS: DOCUSATE SODIUM 100 MG CAPSULE PO SCH ×2 (09:00→17:00)
[2023-01-06] MEDS: LamoTRIgine 100 MG TABLET PO SCH (09:00)
[2023-01-06] MEDS: POLYETHYLENE GLYCOL 3350 17 GM POWD.PACK PO SCH (09:00)
[2023-01-06] MEDS: BENZTROPINE MESYLATE (1 MG) 1 MG TABLET PO SCH ×2 (09:00→17:00)
[2023-01-06] MEDS: PROPRANOLOL LA 60 MG CAP.SA.24H PO SCH (09:00)
[2023-01-06] MEDS: OLANZAPINE 10 MG TABLET PO SCH (09:00)
[2023-01-06] MEDS: risperiDONE 1 MG TABLET PO SCH ×2 (09:00→20:50)
[2023-01-06] MEDS ORDERED: POTASSIUM CHLORIDE 20 MEQ TAB.PRT.SR PO SCH (09:30)
[2023-01-06] MEDS: VALPROATE 500 MG in IV D5W 100 ML IV SCH ×2 (10:11→22:00)
[2023-01-06 16:00] VITALS: BP 96/59; TEMP 99; O2SAT 97
[2023-01-06] MEDS: POTASSIUM CL. PREMIX PERIPHER. 50 ML IV SCH ×4 (16:24→20:49)
[2023-01-06 20:00] VITALS: BP 99/49; TEMP 97.9; O2SAT 94
[2023-01-06] MEDS: OLANZAPINE 5 MG TABLET PO SCH (21:13)
[2023-01-06] MEDS: ENOXAPARIN SODIUM 40 MG/0.4 ML DISP.SYRIN SQ SCH (21:32)
[2023-01-07] MEDS: VANCOMYCIN 1.25 GM in IV D5W 250 ML IV SCH ×2 (01:28→15:46)
[2023-01-07] MEDS: DIAZEPAM 5 MG TABLET PO SCH ×3 (04:22→21:32)
[2023-01-07] MEDS: CEFEPIME 1 GM in IV D5W 50 ML IV SCH ×3 (04:35→21:32)
[2023-01-07] MEDS: clonazePAM 0.5 MG TABLET PO SCH ×2 (06:16→16:32)
[2023-01-07] MEDS: SUCRALFATE 1 G TABLET PO SCH ×4 (07:30→22:40)
[2023-01-07] MEDS: PANTOPRAZOLE 40 MG VIAL IV SCH ×2 (07:30→09:13)
[2023-01-07 07:38] LABS: CALCIUM, SERUM 8.1 mg/dL (8.5-10.1); CREATININE 0.6 mg/dL (0.6-1.3); POTASSIUM 3.2 mmol/L (3.5-5.1)
[2023-01-07 08:00] VITALS: BP 117/57; TEMP 99; O2SAT 91
[2023-01-07] MEDS: ENSURE CLEAR 237 ML LIQUID (MIX BERRY) PO SCH ×2 (08:00→17:18)
[2023-01-07] MEDS ORDERED: POLYMYXIN B SULFATE 500,000 UNITS ONE (08:13)
[2023-01-07] MEDS ORDERED: BUPIVACAINE 0.25% 75 MG/30 ML VIAL ONE (08:13)
[2023-01-07] MEDS: PROPRANOLOL LA 60 MG CAP.SA.24H PO SCH (09:00)
[2023-01-07] MEDS: DOCUSATE SODIUM 100 MG CAPSULE PO SCH ×2 (09:00→16:32)
[2023-01-07] MEDS: BENZTROPINE MESYLATE (1 MG) 1 MG TABLET PO SCH ×2 (09:00→16:33)
[2023-01-07] MEDS: OLANZAPINE 10 MG TABLET PO SCH (09:00)
[2023-01-07] MEDS: LamoTRIgine 100 MG TABLET PO SCH (09:00)
[2023-01-07] MEDS: POLYETHYLENE GLYCOL 3350 17 GM POWD.PACK PO SCH (09:00)
[2023-01-07] MEDS: risperiDONE 1 MG TABLET PO SCH ×2 (09:00→21:32)
[2023-01-07] MEDS ORDERED: FENTANYL PF 100MCG/2ML AMPUL ONE ×4 (10:13→11:42)
[2023-01-07] MEDS ORDERED: LIDOCAINE 2%-EPI 1:100,000 30 ML VIAL ONE (10:44)
[2023-01-07] MEDS: VALPROATE 500 MG in IV D5W 100 ML IV SCH ×2 (12:18→22:40)
[2023-01-07] MEDS ORDERED: MORPHINE SULFATE INJ 2 MG/ML DISP.SYRIN IV PRN (13:00)
[2023-01-07] MEDS: POTASSIUM CL. PREMIX PERIPHER. 50 ML IV SCH ×4 (13:50→17:19)
[2023-01-07 16:00] VITALS: BP 121/80; TEMP 98.6; O2SAT 97
[2023-01-07] MEDS: ENOXAPARIN SODIUM 40 MG/0.4 ML DISP.SYRIN SQ SCH (21:35)
[2023-01-07] MEDS: OLANZAPINE 5 MG TABLET PO SCH (22:40)
[2023-01-08] MEDS: VANCOMYCIN 1.25 GM in IV D5W 250 ML IV SCH ×2 (02:16→15:38)
[2023-01-08] MEDS: DIAZEPAM 5 MG TABLET PO SCH ×3 (05:48→21:00)
[2023-01-08] MEDS: CEFEPIME 1 GM in IV D5W 50 ML IV SCH ×3 (05:48→20:35)
[2023-01-08 06:54] LABS: BASOPHILS % (AUTO) 0.1 % (0.0-2.0); EOSINOPHILS # (AUTO) 0.3 K/uL (0.0-0.7); EOSINOPHILS % (AUTO) 2.7 % (0.0-6.0); HEMATOCRIT 26 % (39-51); HEMOGLOBIN 8.7 g/dL (13.5-17.5); LYMPHOCYTES # (AUTO) 1.4 K/uL (0.8-4.8); LYMPHOCYTES % (AUTO) 14.7 % (20.0-44.0); MEAN CORPUSCULAR HEMOGLOBIN 28 PG (26.0-33.0); MEAN CORPUSCULAR HGB CONC 33 g/dl (31.0-36.0); MEAN CORPUSCULAR VOLUME 85 fL (80-96); MONOCYTES # (AUTO) 1.6 K/uL (0.1-1.30); MONOCYTES % (AUTO) 16.4 % (2.0-12.0); NEUTROPHILS # (AUTO) 6.3 K/uL (1.8-8.9); NEUTROPHILS % (AUTO) 66.1 % (43.0-81.0); PLATELET COUNT (AUTO) 233 K/uL (150-450); RED BLOOD CELL COUNT(AUTO) 3.08 MIL/uL (4.5-6.0); RED CELL DISTRIBUTION WIDTH 16.1 % (11.5-15.0); WHITE BLOOD COUNT (AUTO) 9.5 K/uL (4.3-11.0)
[2023-01-08 07:19] LABS: CREATININE 0.5 mg/dL (0.6-1.3); MAGNESIUM 2.2 mg/dL (1.8-2.4); PHOSPHORUS 3.2 mg/dL (2.5-4.9); POTASSIUM 3.2 mmol/L (3.5-5.1)
[2023-01-08 08:11] VITALS: BP 112/60; TEMP 99.1; O2SAT 96
[2023-01-08] MEDS: ENSURE CLEAR 237 ML LIQUID (MIX BERRY) PO SCH ×2 (09:29→19:55)
[2023-01-08] MEDS: clonazePAM 0.5 MG TABLET PO SCH ×2 (09:36→19:55)
[2023-01-08] MEDS: SUCRALFATE 1 G TABLET PO SCH ×4 (09:36→21:17)
[2023-01-08] MEDS: VALPROATE 500 MG in IV D5W 100 ML IV SCH ×2 (09:37→21:23)
[2023-01-08] MEDS: BENZTROPINE MESYLATE (1 MG) 1 MG TABLET PO SCH ×3 (09:37→19:55)
[2023-01-08] MEDS: risperiDONE 1 MG TABLET PO SCH ×2 (09:38→21:00)
[2023-01-08] MEDS: POLYETHYLENE GLYCOL 3350 17 GM POWD.PACK PO SCH (09:38)
[2023-01-08] MEDS: DOCUSATE SODIUM 100 MG CAPSULE PO SCH ×2 (09:38→19:55)
[2023-01-08] MEDS: LamoTRIgine 100 MG TABLET PO SCH (09:38)
[2023-01-08] MEDS: OLANZAPINE 10 MG TABLET PO SCH (09:38)
[2023-01-08] MEDS: PANTOPRAZOLE 40 MG VIAL IV SCH (09:39)
[2023-01-08] MEDS: PROPRANOLOL LA 60 MG CAP.SA.24H PO SCH (09:55)
[2023-01-08] MEDS ORDERED: POTASSIUM CHLORIDE 20 MEQ POWDER PACKET PO ONE (12:00)
[2023-01-08 13:22] LABS: EOSINOPHILS % (MANUAL) 5 % (0-4); LYMPHOCYTES % (MANUAL) 13 % (16-48); METAMYELOCYTES % 2 % (0-0); MONOCYTES % (MANUAL) 13 % (0-11.0); NEUTROPHILS % (MANUAL) 67 (42-76); PLATELET ESTIMATE ADEQUATE
[2023-01-08] MEDS: IV LR 1000 ML 1,000 ML IV PRN (15:38)
[2023-01-08 16:27] VITALS: BP 99/56; TEMP 98.4; O2SAT 98
[2023-01-08 20:00] VITALS: BP 106/64; TEMP 98.2; O2SAT 99
[2023-01-08] MEDS: OLANZAPINE 5 MG TABLET PO SCH (21:17)
[2023-01-08] MEDS: ENOXAPARIN SODIUM 40 MG/0.4 ML DISP.SYRIN SQ SCH (21:24)
[2023-01-08] MEDS: VANCOMYCIN 1 GM in IV D5W 250ml IV SCH (22:35)
[2023-01-09] MEDS: DIAZEPAM 5 MG TABLET PO SCH ×3 (05:00→21:33)
[2023-01-09] MEDS: CEFEPIME 1 GM in IV D5W 50 ML IV SCH ×3 (05:00→21:54)
[2023-01-09] MEDS: VANCOMYCIN 1 GM in IV D5W 250ml IV SCH ×3 (06:10→23:38)
[2023-01-09] MEDS: clonazePAM 0.5 MG TABLET PO SCH ×2 (07:00→17:00)
[2023-01-09 08:00] VITALS: BP 105/65; TEMP 99.2; O2SAT 95
[2023-01-09] MEDS: ENSURE CLEAR 237 ML LIQUID (MIX BERRY) PO SCH ×2 (08:00→18:02)
[2023-01-09 08:01] LABS: CALCIUM, SERUM 7.7 mg/dL (8.5-10.1); CREATININE 0.5 mg/dL (0.6-1.3); POTASSIUM 3.5 mmol/L (3.5-5.1)
[2023-01-09] MEDS: OLANZAPINE 10 MG TABLET PO SCH (09:00)
[2023-01-09] MEDS: risperiDONE 1 MG TABLET PO SCH ×2 (09:00→21:32)
[2023-01-09] MEDS: LamoTRIgine 100 MG TABLET PO SCH (09:00)
[2023-01-09] MEDS: SUCRALFATE 1 G TABLET PO SCH ×4 (09:00→22:19)
[2023-01-09] MEDS: POLYETHYLENE GLYCOL 3350 17 GM POWD.PACK PO SCH (09:00)
[2023-01-09] MEDS: BENZTROPINE MESYLATE (1 MG) 1 MG TABLET PO SCH ×2 (09:00→18:18)
[2023-01-09] MEDS: PROPRANOLOL LA 60 MG CAP.SA.24H PO SCH (09:00)
[2023-01-09] MEDS: DOCUSATE SODIUM 100 MG CAPSULE PO SCH ×2 (09:00→18:17)
[2023-01-09] MEDS: PANTOPRAZOLE 40 MG/PACK PACK PO SCH (10:00)
[2023-01-09] MEDS: VALPROATE 500 MG in IV D5W 100 ML IV SCH ×2 (10:14→21:51)
[2023-01-09 16:00] VITALS: BP 98/53; TEMP 98.8; O2SAT 96
[2023-01-09 20:00] VITALS: BP 102/54; TEMP 98.8; O2SAT 94
[2023-01-09] MEDS: ENOXAPARIN SODIUM 40 MG/0.4 ML DISP.SYRIN SQ SCH (21:50)
[2023-01-09] MEDS: OLANZAPINE 5 MG TABLET PO SCH (22:19)
[2023-01-10] MEDS: CEFEPIME 1 GM in IV D5W 50 ML IV SCH ×3 (04:30→20:29)
[2023-01-10] MEDS: DIAZEPAM 5 MG TABLET PO SCH ×3 (05:00→21:08)
[2023-01-10] MEDS: VANCOMYCIN 1 GM in IV D5W 250ml IV SCH ×3 (05:26→21:08)
[2023-01-10] MEDS: IV LR 1000 ML 1,000 ML IV PRN ×2 (06:38→22:21)
[2023-01-10] MEDS: clonazePAM 0.5 MG TABLET PO SCH ×2 (06:50→17:00)
[2023-01-10] MEDS: SUCRALFATE 1 G TABLET PO SCH ×5 (07:30→21:08)
[2023-01-10] MEDS: ENSURE CLEAR 237 ML LIQUID (MIX BERRY) PO SCH ×2 (07:44→17:00)
[2023-01-10 07:49] LABS: CALCIUM, SERUM 8.2 mg/dL (8.5-10.1); CREATININE 0.7 mg/dL (0.6-1.3); POTASSIUM 3.6 mmol/L (3.5-5.1)
[2023-01-10] MEDS: PROPRANOLOL LA 60 MG CAP.SA.24H PO SCH (09:00)
[2023-01-10] MEDS: VALPROATE 500 MG in IV D5W 100 ML IV SCH (09:21)
[2023-01-10] MEDS: POLYETHYLENE GLYCOL 3350 17 GM POWD.PACK PO SCH (09:22)
[2023-01-10] MEDS: PANTOPRAZOLE 40 MG/PACK PACK PO SCH (09:22)
[2023-01-10] MEDS: LamoTRIgine 100 MG TABLET PO SCH (09:23)
[2023-01-10] MEDS: BENZTROPINE MESYLATE (1 MG) 1 MG TABLET PO SCH ×2 (09:23→17:00)
[2023-01-10] MEDS: DOCUSATE SODIUM 100 MG CAPSULE PO SCH ×2 (09:23→17:00)
[2023-01-10] MEDS: OLANZAPINE 10 MG TABLET PO SCH (09:23)
[2023-01-10] MEDS: risperiDONE 1 MG TABLET PO SCH ×2 (09:23→21:08)
[2023-01-10 20:31] VITALS: BP 111/77; TEMP 97.8; O2SAT 97
[2023-01-10] MEDS: ENOXAPARIN SODIUM 40 MG/0.4 ML DISP.SYRIN SQ SCH (21:07)
[2023-01-10] MEDS: OLANZAPINE 5 MG TABLET PO SCH (21:08)
[2023-01-10] MEDS: DIVALPROEX SODIUM 125 MG CAP.SPRINK PO SCH (21:08)
[2023-01-11] MEDS: CEFEPIME 1 GM in IV D5W 50 ML IV SCH ×2 (04:11→12:33)
[2023-01-11] MEDS: DIAZEPAM 5 MG TABLET PO SCH ×2 (04:12→12:31)
[2023-01-11] MEDS: VANCOMYCIN 1 GM in IV D5W 250ml IV SCH ×2 (05:10→12:33)
[2023-01-11 07:31] LABS: CALCIUM, SERUM 8.7 mg/dL (8.5-10.1); CREATININE 0.7 mg/dL (0.6-1.3); POTASSIUM 3.5 mmol/L (3.5-5.1)
[2023-01-11 08:00] VITALS: BP 100/60; TEMP 99.1; O2SAT 97
[2023-01-11] MEDS: ENSURE CLEAR 237 ML LIQUID (MIX BERRY) PO SCH (08:00)
[2023-01-11] MEDS ORDERED: SULF1TAB48 PO (08:18)
[2023-01-11] MEDS: BENZTROPINE MESYLATE (1 MG) 1 MG TABLET PO SCH (09:53)
[2023-01-11] MEDS: LamoTRIgine 100 MG TABLET PO SCH (09:53)
[2023-01-11] MEDS: PANTOPRAZOLE 40 MG/PACK PACK PO SCH (09:54)
[2023-01-11] MEDS: OLANZAPINE 10 MG TABLET PO SCH (09:54)
[2023-01-11] MEDS: POLYETHYLENE GLYCOL 3350 17 GM POWD.PACK PO SCH (09:54)
[2023-01-11] MEDS: DIVALPROEX SODIUM 125 MG CAP.SPRINK PO SCH (09:54)
[2023-01-11] MEDS: risperiDONE 1 MG TABLET PO SCH (09:54)
[2023-01-11] MEDS: DOCUSATE SODIUM 100 MG CAPSULE PO SCH (09:54)
[2023-01-11] MEDS: SUCRALFATE 1 G TABLET PO SCH ×2 (10:02→12:31)
[2023-01-11] MEDS: clonazePAM 0.5 MG TABLET PO SCH (10:02)
[2023-01-11 10:03] VITALS: BP 100/60
[2023-01-11] MEDS: PROPRANOLOL LA 60 MG CAP.SA.24H PO SCH (10:03)
== END 2023-01-11 15:00 | DRG 854 ==
LOC: ER 20:58 → TELE 22:12 → MED 23:14
PROVIDERS: ADMIT Nurse Practitioner Acute Care; ATTEND Internal Medicine
PROC: 0JBG0ZZ Excision of Right Lower Arm Subcutaneous Tissue and Fascia, Open Approach (ICD-10-PCS; principal; 2023-01-07)
PROC: 0J9G0ZZ Drainage of Right Lower Arm Subcutaneous Tissue and Fascia, Open Approach (ICD-10-PCS; 2023-01-07)
PROC: 05HF33Z Insertion of Infusion Device into Left Cephalic Vein, Percutaneous Approach (ICD-10-PCS; 2023-01-09)
DX: A41.9 Sepsis, unspecified organism (principal); F84.0 Autistic disorder; L03.113 Cellulitis of right upper limb; L02.413 Cutaneous abscess of right upper limb; D69.6 Thrombocytopenia, unspecified; D64.9 Anemia, unspecified; G40.909 Epilepsy, unspecified, not intractable, without status epilepticus; M70.21 Olecranon bursitis, right elbow; I10 Essential (primary) hypertension; Q99.2 Fragile X chromosome; S50.361A Insect bite (nonvenomous) of right elbow, initial encounter; W57.XXXA Bitten or stung by nonvenomous insect and other nonvenomous arthropods, initial encounter; Y93.89 Activity, other specified; Y92.9 Unspecified place or not applicable; Z79.899 Other long term (current) drug therapy; E87.6 Hypokalemia
CPT/HCPCS: 36410; 36415; 71045-TC; 73080-TC; 73202-TC; 80048-TC; 80053-TC; 80061-TC; 80076-TC; 80202-TC; 81001; 82962-TC; 83540-TC; 83605-TC; 83735-TC; 84100-TC; 84443-TC; 84484-TC; 85025-TC; 85652-TC; 85730-TC; 87040-TC; 87086-TC; 92526; 92611-TC; A4217; A4223; A4349; A6253; A6407; C9113; C9803; G0378; J0690; J0692; J1100; J1650; J2405; J2704; J3010; J3370; J3480; J3490; J7030; J7040; J7050; J7060; J7120; Q0162; Q9967